=== PATIENT | female | born 1985 | race Two or more races ===

== ENCOUNTER 2019-05-10 18:11 | Emergency (ER) | payer OTHER ==
[~2019-05-10] VITALS: Ht 154.9 cm; Wt 78.0 kg
[~2019-05-10 18:11] MED LIST: IBUPROFEN800 MG PO; SEPTRA DS TABLE1 TAB PO
== END 2019-05-11 00:07 | disposition home or self-care (01) ==
LOC: ER 18:11
DX: K52.9 Noninfective gastroenteritis and colitis, unspecified (principal); N94.6 Dysmenorrhea, unspecified

== ENCOUNTER 2020-11-10 16:00 | Emergency (ER) | payer OTHER ==
[~2020-11-10] VITALS: Ht 154.9 cm; Wt 79.4 kg
== END 2020-11-10 20:19 | disposition home or self-care (01) ==
LOC: ER 16:00
DX: K29.70 Gastritis, unspecified, without bleeding (principal); R10.11 Right upper quadrant pain

== ENCOUNTER 2020-12-07 14:10 | Emergency (ER) | payer OTHER ==
[~2020-12-07] VITALS: Ht 154.9 cm; Wt 79.4 kg
[2020-12-07] MEDS ORDERED: PROTONIX40 M1 (14:42)
== END 2020-12-07 18:54 | disposition home or self-care (01) ==
LOC: ER 14:10
DX: R10.84 Generalized abdominal pain (principal)

== ENCOUNTER 2024-01-27 10:28 | Emergency (ER) | payer OTHER ==
[~2024-01-27] VITALS: Ht 154.9 cm; Wt 79.4 kg
[~2024-01-27 10:28] MED LIST changes: +PROTONIX40 M1
[2024-01-27] MEDS ORDERED: FAMOTIDINE/PF 20 MG/2 ML VIAL IV PUSH STA (13:24)
[2024-01-27 13:49] LABS: HEMATOCRIT 41.8 % (36.0-45.00); HEMOGLOBIN 14.3 g/dL (12.0-15.00); MEAN CELL VOLUME 91.7 fL (80.00-100.00); MEAN CORPUSCULAR HEMOGLOBIN 31.4 pg (27.00-32.0); MEAN CORPUSCULAR HGB CONC 34.3 g/dl (32.0-36.0); PLATELET COUNT 337 K/uL (150-450); RED BLOOD COUNT 4.56 M/uL (4.00-6.00); RED CELL DISTRIBUTION WIDTH 12.7 % (11.5-14.5)
[2024-01-27 14:41] LABS: CREATININE SERUM 0.85 mg/dL (0.55-1.02); GFR 75.26; POTASSIUM 3.83 mEq/L (3.5-5.1)
[2024-01-27 14:43] LABS: PH,URINE 5.5 (5.0-8.0); URINE APPEARANCE Clear; URINE BILIRRUBIN Negative (NEGATIVE); URINE BLOOD Negative; URINE COLOR Yellow; URINE GLUCOSE Negative (NEGATIVE); URINE LEUKOCYTE Negative; URINE NITRATE Negative; URINE PROTEIN Negative (NEGATIVE); URINE UROBILINOGEN 0.2 E.U./dl
[2024-01-27 14:46] LABS: URINE BACTERIA 414.5 uL (0.0-1933); URINE EPITHELIAL CELLS 12.6 uL (0.0-38.8); URINE WBC 12.6 uL (0.0-23.2)
== END 2024-01-27 15:36 | disposition left against medical advice (07) ==
LOC: ER 10:28
DX: N39.0 Urinary tract infection, site not specified (principal); K29.70 Gastritis, unspecified, without bleeding
CPT/HCPCS: 36415; 96365; 99282; J3490